=== PATIENT | male | born 1960 | race Caucasian/White ===

== ENCOUNTER 2021-04-04 09:45 | Emergency (ER) | payer MEDICAID ==
[~2021-04-04] VITALS: Ht 175.3 cm; Wt 77.1 kg
--- NOTE | 2021-04-04 09:50 | NUR ---
BIBRA 89 c/o chest pain. Pt labs were sent and EKG. Waiting for MD Akers.
[2021-04-04] MEDS ORDERED: ALBUTEROL FS 2.5 MG/3 ML VIAL.NEB ONE (10:18)
[2021-04-04] MEDS ORDERED: IPRATROPIUM NEB FS 0.5 MG/2.5 ML AMPUL.NEB ONE (10:18)
[2021-04-04 10:28] LABS: BASOPHILS # (AUTO) 0.1 K/uL (0.0-0.2); BASOPHILS % (AUTO) 0.7 % (0.0-2.0); EOSINOPHILS % (AUTO) 2.7 % (0.0-6.0); HEMATOCRIT 35 % (39-51); HEMOGLOBIN 11.4 g/dL (13.5-17.5); LYMPHOCYTES # (AUTO) 1.4 K/uL (0.8-4.8); MEAN CORPUSCULAR HGB CONC 33 g/dl (31.0-36.0); MEAN CORPUSCULAR VOLUME 89 fL (80-96); MONOCYTES # (AUTO) 0.9 K/uL (0.1-1.30); MONOCYTES % (AUTO) 13.7 % (2.0-12.0); NEUTROPHILS # (AUTO) 4.3 K/uL (1.8-8.9); NEUTROPHILS % (AUTO) 62.9 % (43.0-81.0); PLATELET COUNT (AUTO) 208 K/uL (150-450); RED BLOOD CELL COUNT(AUTO) 3.94 MIL/uL (4.5-6.0); WHITE BLOOD COUNT (AUTO) 6.9 K/uL (4.3-11.0)
[2021-04-04] MEDS ORDERED: IV NS 0.9% 500 ML BAG IV ONE (10:30)
[2021-04-04] MEDS ORDERED: ALBUTEROL FS 2.5 MG/3 ML VIAL.NEB NEB ONE (10:30)
[2021-04-04] MEDS ORDERED: IPRATROPIUM NEB FS 0.5 MG/2.5 ML AMPUL.NEB NEB ONE (10:30)
[2021-04-04 11:02] LABS: CALCIUM, SERUM 8.2 mg/dL (8.5-10.1); CARBON DIOXIDE 26 mmol/L (21-32); CHLORIDE 98 mmol/L (98-107); CREATININE 1.2 mg/dL (0.6-1.3); POTASSIUM 4.5 mmol/L (3.5-5.1); SODIUM SERUM 132 mmol/L (136-145); UREA NITROGEN, BLOOD 10 mg/dL (7-18)
[2021-04-04 11:07] LABS: GLUCOSE 585 mg/dL (74-106)
[2021-04-04 11:14] LABS: ALANINE AMINOTRANSFERASE 14 U/L (12-78); ALBUMIN 3.2 g/dL (3.4-5.0); ALKALINE PHOSPHATASE 106 U/L (46-116); ASPARTATE AMINOTRANSFERASE 13 U/L (15-37); BILIRUBIN,DIRECT 0.1 mg/dL (0.0-0.2); BILIRUBIN,TOTAL 0.3 mg/dL (0.2-1.0); TOTAL PROTEIN, SERUM 6.9 g/dL (6.4-8.2)
[2021-04-04] MEDS ORDERED: INSULIN REGULAR, HUMAN 100 UNIT/ML 10 ML VIAL IV ONE (11:30)
--- NOTE | 2021-04-04 12:03 | NUR ---
BLOOD SUGAR IS 519. DR BRIGHT MADE AWARE
--- NOTE | 2021-04-04 12:55 | NUR ---
BLOOD SUGAR WAS 436. DR BRIGHT WAS NOTIFIED. DISCHARGE PAPERS WERE GIVEN.
--- NOTE | 2021-04-04 13:11 | NUR ---
pt is speaking with social media campaign manager for transportation services.
--- NOTE | 2021-04-04 13:19 | NUR ---
SS Consult: SS consult completed & written by LEONA, Haritha Yuossef SS consult requested for DC Planning & transportation. Pt. is a 60-year-old male who was brought into hospital by ambulance. During assessment, pt. is lying in bed oriented x3, alert, and cooperative. The pt. appeared well-groomed and was capable of following directions and made appropriate eye contact. Per pt., he came to the hospital due to high sugar levels and was not feeling well. LEONA explored pt.s mental health and drug abuse. Pt. reported no Hx of mental health, SI/HI and denies hallucinations. Pt. stated that he had Hx. of substance abuse in the past. LEONA explored pt.s living situation and support system. Pt. stated that he lives alone at home [[id number] [place] [address]] and his cousin Jonn Gamble [[phone]] is his support system. Pt. stated she is independent with his ADLs, and uses a walker to ambulate. LEONA explored pt.s financial situation. Per pt., he is receiving [employer] as an income. Pt. needed a transportation home, nurse provided pt. with a tap card. Plan: Pt. is discharged to home [[id number] [place] [address]] and got a tap card from ER nurse.
[2021-04-04 13:34] VITALS: BP 121/84
== END 2021-04-04 13:35 | disposition short-term general hospital (02) ==
LOC: ER 09:55
DX: J44.9 Chronic obstructive pulmonary disease, unspecified (principal); E11.65 Type 2 diabetes mellitus with hyperglycemia; I10 Essential (primary) hypertension; Z88.0 Allergy status to penicillin
CPT/HCPCS: 36415; 71045; 80048; 80076; 82962 ×2; 83880; 84484; 85025; 93005; 94640; 96372; 99285; J1815; J7040 ×2

== ENCOUNTER 2021-05-08 14:28 | Emergency (ER) | payer MEDICAID ==
[~2021-05-08] VITALS: Ht 182.9 cm; Wt 86.2 kg
--- NOTE | 2021-05-08 14:32 | NUR ---
To ER bed 13, ERASMOGaudencio [id number] "Fell couple days ago since then has been complaining of weakness and unable to ambulated, aaox3, breathing even and non labored, connected to monitor
[2021-05-08 14:55] LABS: BASOPHILS % (AUTO) 0.6 % (0.0-2.0); EOSINOPHILS % (AUTO) 3.3 % (0.0-6.0); HEMATOCRIT 39 % (39-51); HEMOGLOBIN 12.5 g/dL (13.5-17.5); LYMPHOCYTES # (AUTO) 1.1 K/uL (0.8-4.8); LYMPHOCYTES % (AUTO) 13.5 % (20.0-44.0); MEAN CORPUSCULAR HGB CONC 32 g/dl (31.0-36.0); MEAN CORPUSCULAR VOLUME 88 fL (80-96); MONOCYTES # (AUTO) 0.7 K/uL (0.1-1.30); MONOCYTES % (AUTO) 9.3 % (2.0-12.0); NEUTROPHILS # (AUTO) 5.8 K/uL (1.8-8.9); NEUTROPHILS % (AUTO) 73.3 % (43.0-81.0); PLATELET COUNT (AUTO) 381 K/uL (150-450); RED BLOOD CELL COUNT(AUTO) 4.45 MIL/uL (4.5-6.0); WHITE BLOOD COUNT (AUTO) 7.9 K/uL (4.3-11.0)
[2021-05-08] MEDS ORDERED: IV NS 0.9% 1,000 ML BAG IV ONE (15:00)
[2021-05-08 15:09] LABS: ALKALINE PHOSPHATASE 86 U/L (46-116); ASPARTATE AMINOTRANSFERASE 63 U/L (15-37); BILIRUBIN,DIRECT 0.1 mg/dL (0.0-0.2); BILIRUBIN,TOTAL 0.6 mg/dL (0.2-1.0); CALCIUM, SERUM 8.4 mg/dL (8.5-10.1); CARBON DIOXIDE 25 mmol/L (21-32); CHLORIDE 101 mmol/L (98-107); CREATININE 1.2 mg/dL (0.6-1.3); GLUCOSE 274 mg/dL (74-106); POTASSIUM 4.4 mmol/L (3.5-5.1); SODIUM SERUM 138 mmol/L (136-145); TOTAL PROTEIN, SERUM 7.5 g/dL (6.4-8.2); UREA NITROGEN, BLOOD 19 mg/dL (7-18)
[2021-05-08 15:29] LABS: ALANINE AMINOTRANSFERASE 18 U/L (12-78)
[2021-05-08] MEDS ORDERED: OMEP20CA15 PO (16:18)
[2021-05-08] MEDS ORDERED: MIRT-90 PO (16:18)
[2021-05-08] MEDS ORDERED: CETI10TA14 PO (16:18)
[2021-05-08] MEDS ORDERED: ASPI-1498 PO (16:18)
[2021-05-08] MEDS ORDERED: HYDR50TA61 PO (16:18)
[2021-05-08] MEDS ORDERED: MONT10TA22 PO (16:18)
[2021-05-08] MEDS ORDERED: PIOG45TA5 PO (16:18)
[2021-05-08] MEDS ORDERED: TIOT18CA3 INH (16:18)
[2021-05-08] MEDS ORDERED: METF-442 PO (16:18)
[2021-05-08] MEDS ORDERED: ATOR40TA PO (16:18)
[2021-05-08] MEDS ORDERED: APIX5TAB PO (16:18)
[2021-05-08] MEDS ORDERED: GLIM4TAB37 PO (16:18)
[2021-05-08] MEDS ORDERED: PRIM50TA27 PO (16:18)
[2021-05-08] MEDS ORDERED: LOSA50TA39 PO (16:18)
--- NOTE | 2021-05-08 16:47 | NUR ---
called nursing sup regarding pt bed.
--- NOTE | 2021-05-08 16:50 | NUR ---
still unable to provide urine
[2021-05-08 17:21] LABS: BILIRUBIN,URINE MODERATE (NEGATIVE); COLOR,URINE YELLOW (YELLOW); LEUKOCYTE ESTERASE ,URINE Negative (NEGATIVE); NITRITE, URINE Negative (NEGATIVE); PROTEIN,URINE Trace mg/dl (NEGATIVE); UGLUCOSE 500 MG/DL mg/dL (NEGATIVE); UROBILINOGEN,URINE 0.2 EU/dL (0.2)
[2021-05-08 17:25] LABS: BACTERIA,URINE None seen /HPF (None Seen); HYALINE CASTS, URINE Few /LPF (None Seen); RBC,URINE 0-2 /HPF (0-2); WBC,URINE 0-2 /HPF (0-3)
--- NOTE | 2021-05-08 18:30 | NUR ---
IV removed. Catheter intact and site benign. Pressure and 4x4 applied to site. No bleeding noted.Patient discharged to home in stable condition. Written and verbal after care instructions given. Patient verbalizes understanding of instruction.
[2021-05-08 19:21] VITALS: BP 139/87
== END 2021-05-08 19:21 | disposition home or self-care (01) ==
LOC: ER 15:20
DX: R53.1 Weakness (principal); Z20.822 Contact with and (suspected) exposure to COVID-19; J44.9 Chronic obstructive pulmonary disease, unspecified; R00.0 Tachycardia, unspecified; Z79.01 Long term (current) use of anticoagulants; Z79.899 Other long term (current) drug therapy; Z79.84 Long term (current) use of oral hypoglycemic drugs; E11.9 Type 2 diabetes mellitus without complications; I10 Essential (primary) hypertension; Z88.0 Allergy status to penicillin
CPT/HCPCS: 36415; 71045; 80048; 80076; 81001; 84484; 85025; 87081; 87426; 93005; 96360; 99285; C9803; J7030; U0003